=== PATIENT | female | born 1990 | race Caucasian/White ===

== ENCOUNTER 2017-01-06 19:26 | Emergency (ER) | payer SELFPAY ==
[~2017-01-06] VITALS: Ht 170.2 cm; Wt 77.1 kg
[~2017-01-06 19:26] MED LIST: ATIVAN0.5 MG ORAL; ATIVAN1 MG ORAL; IBUPROFEN600 MG ORAL; NKM; ONDANSETRON ODT4 MG ORAL; ZOFRAN ODT4 MG ORAL; ZOFRAN4 MG ORAL; ZOFRAN8 MG ORAL; ZOLPIDEM TARTRAT5 MG ORAL
[2017-01-06] MEDS ORDERED: AMOXICILLIN500 MG ORAL (20:04)
[2017-01-06] MEDS ORDERED: BENADRYL25 MG ORAL (20:04)
[2017-01-06] MEDS ORDERED: HYDROCORTISON28.4 G5 TP (20:04)
[2017-01-06 20:12] VITALS: BP 111/60
[2017-01-06 20:13] VITALS: BP 111/60
--- NOTE | 2017-01-09 18:14 | Emergency Room Report ---
History of Present Illness General Chief Complaint: Skin Rash/Abscess Source: Patient, Medical Record Present Illness HPI The patient is a 26 year old female presenting with a total body rash which began 3 days prior and also sore throat with ear pain. The pt states she recently returned from a tour across [place]. She denies any sick contacts. She does admit to using a new detergent the day before the rash began. It is described as itchy and denies pain. She denies any known allergies. Sore throat is described as a 6/10 dull ache and does not radiate. Pain worse with swallowing. She denies other symptoms such as N, V, F, chills, neck pain/ stiffness, blurred vision, dizziness, fatigue, abd pain, CP, SOB Allergies: Coded Allergies: No Known Allergies (Unverified , 04/03/13) Patient History Past Medical History: see triage record Pertinent Family History: none Last Menstrual Period: 12/20/16 Now: No Reviewed Nursing Documentation: PMH: Agreed, PSxH: Agreed Nursing Documentation-PMH Hx Cardiac Problems: No Hx Asthma: Yes Hx Cancer: No Hx Gastrointestinal Problems: Yes - Cyclic vomiting syndrome Hx Dizziness: Yes Hx Weakness: Yes Review of Systems All Other Systems: negative except mentioned in HPI Physical Exam Vital Signs Date Time Temp Pulse Resp B/P Pulse Ox O2 Delivery O2 Flow Rate FiO2 01/06/17 19:37 97.5 94 14 111/60 98 Room Air Sp02 EP Interpretation: reviewed, normal General Appearance: no apparent distress, alert, GCS 15, non-toxic Head: normocephalic, atraumatic Eyes: bilateral eye PERRL, bilateral eye normal inspection ENT: hearing grossly normal, no angioedema, normal voice, uvula midline, tonsillar swelling, pharyngeal erythema Neck: full range of motion, supple/symm/no masses Respiratory: chest non-tender, lungs clear, normal breath sounds, no wheezing, speaking full sentences Cardiovascular #1: regular rate, rhythm, no edema Musculoskeletal: back normal, gait/station normal, normal range of motion, non- tender Neurologic: alert, oriented x3, responsive, motor strength/tone normal, sensory intact, speech normal Psychiatric: judgement/insight normal, memory normal, mood/affect normal, no suicidal/homicidal ideation Skin: palpation normal, normal turgor, rash, other - erythema to the anterior arms, abdomen, and legs Lymphatic: adenopathy - cervical Medical Decision Making PA Attestation Dr. mcpherson is my supervising physician. Patient management was discussed with my supervising physician Diagnostic Impression: Primary Impression: Contact dermatitis Qualified Codes: L24.0 - Irritant contact dermatitis due to detergents Additional Impression: Pharyngitis, acute Qualified Codes: J02.9 - Acute pharyngitis, unspecified ER Course The patient is a 26 year old female presenting with a total body rash Differential diagnosis include but not limited to pharyngitis, sinusitis, AOM, bronchitis, PNA, meningitis Ddx considered include but not limited to insect bite, contact dermatitis, eczema, cellulitis Physical exam: Vitals within normal limits. Afebrile. No apparent distress HEENT exam: There is bilateral tonsillar edema, erythema, Uvula midline. Moist mucous membranes. There is bilateral cervical lymphadenopathy. Lungs are clear to auscultation bilaterally Skin is warm and dry. There is erythema to the anterior arms, abdomen, and legs The patient will be discharged home with a prescription for amoxicillin, benadryl, hydrocortisone, and and is given ER precautions. Patient will followup with primary care. Pt will stop using the new detergent. Last Vital Signs Date Time Temp Pulse Resp B/P Pulse Ox O2 Delivery O2 Flow Rate FiO2 01/06/17 20:13 97.5 14 111/60 98 Room Air 01/06/17 20:12 88 Status: improved Disposition: HOME, SELF-CARE Condition: Stable Scripts Amoxicillin* (AMOXIL*) 500 Mg Capsule 500 MG ORAL Q12HR, #20 CAP Prov: TERZIAN,ROHAN P.A. 01/06/17 Diphenhydramine Hcl* (BENADRYL*) 25 Mg Capsule 25 MG ORAL Q6H Y for Itching, #20 CAP Prov: TERZIAN,ROHAN P.A. 01/06/17 Hydrocortisone 1% cream (Hydrocortisone 1% cream) Y Cr 28.4 GM TP TID, #28 GM Prov: TERZIAN,ROHAN P.A. 01/06/17 Referrals: NOT CHOSEN [facility]/MD,REFERRING (PCP) Patient Instructions: Rash, Pharyngitis Additional Instructions: I discussed my findings with the patient. All questions and concerns have been answered. Treatment and medication compliance have been addressed. I advised the patient that they need to follow up with PMD in 3-5 days. Return to ED if symptoms worsen, new symptoms arise, or if needed for any reason. Patient verbalized understanding of discharge instructions. ROHAN HYMAN Jan 09, 2017 18:14
== END 2017-01-06 20:11 | disposition home or self-care (01) ==
LOC: EMR 19:52
DX: L25.9 Unspecified contact dermatitis, unspecified cause (principal); J02.9 Acute pharyngitis, unspecified; J45.909 Unspecified asthma, uncomplicated
CPT/HCPCS: 99284

== ENCOUNTER 2018-05-08 23:54 | Emergency (ER) | payer SELFPAY ==
[~2018-05-08] VITALS: Ht 165.1 cm; Wt 81.6 kg
[~2018-05-08 23:54] MED LIST changes: +AMOXICILLIN500 MG ORAL; +BENADRYL25 MG ORAL; +HYDROCORTISON28.4 G5 TP
[2018-05-09 00:15] VITALS: BP 130/80
[2018-05-09] MEDS ORDERED: MUPIROCIN22 GM TOPIC (00:35)
[2018-05-09] MEDS ORDERED: BACTRIM DS TAB1 EAC1 ORAL (00:35)
--- NOTE | 2018-05-09 00:36 | Emergency Room Report ---
History of Present Illness General Chief Complaint: Female Urogenital Problems Source: Patient Present Illness HPI Is a 28-year-old female with no past medical history. She presents with chief complaint of vaginal irritation. She is concerned that she may have an STD. She only had one sexual partner and that was over a year ago. She noticed some rash and bumps to the vaginal area. She was concerned that this may be herpes or other STD. No discharge. No urinary complaint. Denies any other complaint. Allergies: Coded Allergies: No Known Allergies (Unverified , 04/03/13) Patient History Past Medical History: see triage record, old chart reviewed Past Surgical History: none Pertinent Family History: none Social History: Denies: smoking Now: No Immunizations: other Reviewed Nursing Documentation: PMH: Agreed; PSxH: Agreed Nursing Documentation-PMH Past Medical History: No Stated History Hx Cardiac Problems: No Hx Asthma: Yes Hx Cancer: No Hx Gastrointestinal Problems: Yes - Cyclic vomiting syndrome Hx Dizziness: Yes Hx Weakness: Yes Review of Systems Eye: Denies: eye pain, blurred vision ENT: Denies: ear pain, nose congestion, throat swelling Respiratory: Denies: cough, shortness of breath Cardiovascular: Denies: chest pain, palpitations Gastrointestinal: Denies: abdominal pain, diarrhea, nausea, vomiting Musculoskeletal: Denies: back pain, joint pain Skin: Denies: rash Neurological: Denies: headache, numbness Endocrine: Denies: increased thirst, increased urine Hematologic/Lymphatic: Denies: easy bruising All Other Systems: negative except mentioned in HPI Physical Exam Vital Signs Date Time Temp Pulse Resp B/P (MAP) Pulse Ox O2 Delivery O2 Flow Rate FiO2 05/09/18 00:05 98.4 78 16 130/80 98 Room Air 98.4 vitals normal Sp02 EP Interpretation: reviewed, normal General Appearance: well appearing, no apparent distress, alert Head: normocephalic, atraumatic Eyes: bilateral eye PERRL, bilateral eye EOMI ENT: hearing grossly normal, normal pharynx Neck: full range of motion, supple, no meningismus Respiratory: chest non-tender, lungs clear, normal breath sounds Cardiovascular #1: regular rate, rhythm, no murmur Gastrointestinal: normal bowel sounds, non tender, no mass, no organomegaly, no bruit, non-distended Genitourinary: other - Pelvic exam done with female nurse as bracelet maker novelty. External exam show skin irritation of the hair follicle mostly on the left side. She had previously shaved her pubic hair. No abscess. No vesicular lesion. Musculoskeletal: back normal, gait/station normal, normal range of motion Neurologic: alert, oriented x3 Psychiatric: anxious Skin: warm/dry Medical Decision Making Diagnostic Impression: Primary Impression: Folliculitis ER Course Patient with irritation of the skin from shaving. She may have an early folliculitis. We'll go ahead and put on antibiotic ointment and antibiotics. No evidence of STD. Explained to patient that she can get outpatient testing for this. This can be done anonymously. Last Vital Signs Date Time Temp Pulse Resp B/P (MAP) Pulse Ox O2 Delivery O2 Flow Rate FiO2 05/09/18 00:05 98.4 78 16 130/80 98 Room Air 98.4 Status: improved Disposition: HOME, SELF-CARE Condition: Stable Scripts Trimethoprim/Sulfamethoxazole 160/800* (BACTRIM DS TABLET*) 1 Each Tablet 1 TAB ORAL Q12H, #14 TAB 0 Refills Prov: KATALINA LIMA M.D. 05/09/18 Mupirocin* (MUPIROCIN*) 22 Gm Oint...g. 1 APPLIC TOPIC THREE TIMES A DAY, #22 GM Prov: KATALINA LIMA M.D. 05/09/18 Referrals: NOT CHOSEN [facility]/,REFERRING (PCP) Additional Instructions: Clean area with hydrogen peroxide first. Then apply antibiotic ointment. Follow-up with your doctor within a week as needed. You may get outpatient testing for STDs. This can be done anonymously. Return if worse. KATALINA LIMA M.D. May 09, 2018 00:36
[2018-05-09 00:56] LABS: APPEARANCE,URINE CLEAR; BILIRUBIN, URINE NEGATIVE (NEGATIVE); GLUCOSE, URINE (UA) NEGATIVE (NEGATIVE); KETONES,URINE 1+ (NEGATIVE); LEUKOCYTE ESTERASE ,URINE 1+ (NEGATIVE); NITRITE,URINE NEGATIVE (NEGATIVE); PH,URINE 5 (4.5-8.0); PROTEIN,URINE 2+ (NEGATIVE); UROBILINOGEN,URINE 1 MG/DL (0.0-1.0)
[2018-05-09 00:59] LABS: COLOR,URINE YELLOW
[2018-05-09 01:23] VITALS: BP 130/80
== END 2018-05-09 01:25 | disposition home or self-care (01) ==
LOC: EMR 05-09 00:22
DX: L73.9 Follicular disorder, unspecified (principal)
CPT/HCPCS: 81003; 81025; 99283

== ENCOUNTER 2020-05-30 19:17 | Emergency (ER) | payer SELFPAY ==
[~2020-05-30] VITALS: Ht 170.2 cm; Wt 77.6 kg
[~2020-05-30 19:17] MED LIST changes: +BACTRIM DS TAB1 EAC1 ORAL; +DICYCLOMINE HCL10 MG ORAL; +MUPIROCIN22 GM TOPIC; +ZOFRAN4 M3 ORAL
[2020-05-30 19:37] VITALS: BP 122/89
--- NOTE | 2020-05-30 19:37 | NUR ---
ED Nurse Note: Patient walked in from home d/t n/v as well as anxiety, patient reports she was seen at [facility] two days ago, labs were normal per pt and was discharged home. Patient reports she has not been able to keep anything PO fluids or food down. Patient aao x 4 and ambulatory with steady gait. Patient stable during assessment.
--- NOTE | 2020-05-30 19:37 | NUR ---
ED Nurse Note: Patient reports she uses marijuana to help with her appetite.
[2020-05-30] MEDS ORDERED: LORazepam Inj 2mg/ml 1ml IV ONE (19:45)
--- NOTE | 2020-05-30 19:57 | Emergency Room Report ---
History of Present Illness General Chief Complaint: Vomiting Source: Patient Present Illness HPI Patient is a 30-year-old female past medical history of cyclical vomiting who presents to the ER complaining of generalized weakness, nausea and vomiting for the past several days. Patient states that she was seen here 2 days ago and had normal lab work and was discharged home. Patient states that she has a history of anxiety and that the nausea and vomiting has exacerbated her anxiety. She denies any fever or chills. She denies any chest pain or shortness of breath. She denies any dysuria or hematuria. She denies any blood or bilious vomitus. Allergies: Coded Allergies: No Known Allergies (Unverified , 04/03/13) COVID-19 Screening Contact w/high risk pt: No Experienced COVID-19 symptoms?: No COVID-19 Testing performed CLOTH DESIZING RANGE TENDER: No Patient History Last Menstrual Period: 05/29/20 Now: No : 0 Para: 0 Reviewed Nursing Documentation: PMH: Agreed; PSxH: Agreed Nursing Documentation-PMH Past Medical History: No Stated History Hx Cardiac Problems: No Hx Asthma: Yes Hx Cancer: No Hx Gastrointestinal Problems: Yes - Cyclic vomiting syndrome Hx Dizziness: Yes Hx Weakness: Yes Review of Systems All Other Systems: negative except mentioned in HPI Physical Exam Vital Signs Date Time Temp Pulse Resp B/P (MAP) Pulse Ox O2 Delivery O2 Flow Rate FiO2 05/30/20 19:26 98.6 85 16 136/95 (109) 92 Room Air Sp02 EP Interpretation: reviewed, normal General Appearance: no apparent distress, alert, GCS 15, non-toxic Head: normocephalic, atraumatic Eyes: bilateral eye normal inspection, bilateral eye PERRL ENT: hearing grossly normal, normal pharynx, no angioedema, normal voice Neck: full range of motion, supple/symm/no masses Respiratory: chest non-tender, lungs clear, normal breath sounds, speaking full sentences Cardiovascular #1: regular rate, rhythm, no edema Gastrointestinal: other Rectal: deferred Genitourinary: no CVA tenderness Musculoskeletal: normal range of motion Neurologic: glass calibrator III-XII nml as tested, oriented x3 Psychiatric: no suicidal/homicidal ideation Skin: no rash Lymphatic: no adenopathy Medical Decision Making Diagnostic Impression: Primary Impression: Gastroenteritis Additional Impression: cyclic vomiting syndrome ER Course Patient's labs demonstrate no significant acute abnormalities. Patient's UA does demonstrate RBCs but patient is currently menstruating. Patient CT consistent with gastroenteritis. Patient given IV fluids, Zofran and Pepcid. On reevaluation she feels improved. I have given her a copy of her CAT scan results. After discussing risks and benefits of further diagnostics, treatment plans, as well as indications for and risks of admission, the patient is agreeable to being discharged home. I have explained that their evaluation and treatment in the emergency department today is an important step towards them achieving better health but that their evaluation today is not intended to replace further evaluation and treatment by a physician in their local clinic. I have explained that while the current findings suggest no immediate life threatening emergency they will require further evaluation and treatment by a physician of their choice in their area. They understand that it will be necessary for them to review the final reports of their ED visit with their clinic physician. We have reviewed indications for return to the Emergency Department. I have explained that additional time may need to pass and/or additional testing as an outpatient may be necessary before a definitive diagnosis can be made. They tell me they are willing to follow up as instructed within the timeframe I recommend. They appear to understand what we discussed. Additionally they understand that if they are unable to be seen by an outpatient physician they are welcome, and in fact should, return to the Emergency Department for a repeat evaluation. The patient is stable at time of discharge. Laboratory Tests Test 05/30/20 19:44 White Blood Count 7.7 K/UL (4.8-10.8) Red Blood Count 4.61 M/UL (4.20-5.40) Hemoglobin 13.9 G/DL (12.0-16.0) Hematocrit 42.5 % (37.0-47.0) Mean Corpuscular Volume 92 FL (80-99) Mean Corpuscular Hemoglobin 30.2 PG (27.0-31.0) Mean Corpuscular Hemoglobin Concent 32.8 G/DL (32.0-36.0) Red Cell Distribution Width 13.0 % (11.6-14.8) Platelet Count 309 K/UL (150-450) Mean Platelet Volume 7.4 FL (6.5-10.1) Neutrophils (%) (Auto) 55.9 % (45.0-75.0) Lymphocytes (%) (Auto) 32.6 % (20.0-45.0) Monocytes (%) (Auto) 8.7 % (1.0-10.0) Eosinophils (%) (Auto) 1.3 % (0.0-3.0) Basophils (%) (Auto) 1.6 % (0.0-2.0) Urine Color Yellow Urine Appearance Cloudy Urine pH 7 (4.5-8.0) Urine Specific [place] 1.015 (1.005-1.035) Urine Protein 1+ (NEGATIVE) H Urine Glucose (UA) Negative (NEGATIVE) Urine Ketones 4+ (NEGATIVE) H Urine Blood 5+ (NEGATIVE) H Urine Nitrite Negative (NEGATIVE) Urine Bilirubin Negative (NEGATIVE) Urine Urobilinogen Normal MG/DL (0.0-1.0) Urine Leukocyte Esterase 1+ (NEGATIVE) H Urine RBC Tntc /HPF (0 - 2) H Urine WBC 2-4 /HPF (0 - 2) Urine Squamous Epithelial Cells Few /LPF (NONE/OCC) Urine Bacteria Few /HPF (NONE) Urine HCG, Qualitative Negative (NEGATIVE) Sodium Level 140 MMOL/L (136-145) Potassium Level 3.7 MMOL/L (3.5-5.1) Chloride Level 103 MMOL/L (98-107) Carbon Dioxide Level 27 MMOL/L (21-32) Anion Gap 10 mmol/L (5-15) Blood Urea Nitrogen 8 mg/dL (7-18) Creatinine 0.8 MG/DL (0.55-1.30) Estimated Glomerular Filtration Rate > 60 mL/min (>60) Glucose Level 100 MG/DL (74-106) Calcium Level 8.7 MG/DL (8.5-10.1) Magnesium Level 2.4 MG/DL (1.8-2.4) Total Bilirubin 0.5 MG/DL (0.2-1.0) Aspartate Amino Transferase (AST) 19 U/L (15-37) Alanine Aminotransferase (ALT) 20 U/L (12-78) Alkaline Phosphatase 56 U/L (46-116) Total Protein 8.0 G/DL (6.4-8.2) Albumin 4.5 G/DL (3.4-5.0) Globulin 3.5 g/dL Albumin/Globulin Ratio 1.3 (1.0-2.7) Lipase 146 U/L (73-393) Urine Opiates Screen Negative (NEGATIVE) Urine Barbiturates Screen Negative (NEGATIVE) Phencyclidine (PCP) Screen Negative (NEGATIVE) Urine Amphetamines Screen Negative (NEGATIVE) Urine Benzodiazepines Screen Negative (NEGATIVE) Urine Cocaine Screen Negative (NEGATIVE) Urine Marijuana (THC) Screen Positive (NEGATIVE) H Last Vital Signs Date Time Temp Pulse Resp B/P (MAP) Pulse Ox O2 Delivery O2 Flow Rate FiO2 05/30/20 19:50 85 16 136/95 92 05/30/20 19:26 98.6 Room Air Disposition: HOME, SELF-CARE Condition: Stable Scripts Famotidine* (Pepcid 20mg tablet*) 20 Mg Tablet 20 MG ORAL DAILY, #30 TAB 0 Refills Prov: Yahaira Rothman M.D. 05/30/20 Ondansetron* (ZOFRAN*) 4 Mg Tablet 4 MG ORAL Q6H PRN for Nausea & Vomiting, #20 TAB Prov: Yahaira Rothman M.D. 05/30/20 Additional Instructions: The patient was provided with discharge instructions, notified to follow-up with a primary care doctor and or specialist in the next 24-48 hours, and to return to the ED if they have worsening of their symptoms. Please note that this report is being documented using [employer] technology. This can lead to erroneous entry secondary to incorrect interpretation by the dictating instrument. Yahaira Rothman M.D. May 30, 2020 19:57
[2020-05-30 20:13] LABS: BASOPHILS % (AUTO) 1.6 % (0.0-2.0); EOSINOPHILS % (AUTO) 1.3 % (0.0-3.0); HEMATOCRIT 42.5 % (37.0-47.0); HEMOGLOBIN 13.9 G/DL (12.0-16.0); LYMPHOCYTES % (AUTO) 32.6 % (20.0-45.0); MEAN CORPUSCULAR VOLUME 92 FL (80-99); MONOCYTES % (AUTO) 8.7 % (1.0-10.0); NEUTROPHILS % (AUTO) 55.9 % (45.0-75.0); PLATELET COUNT 309 K/UL (150-450); RED BLOOD COUNT 4.61 M/UL (4.20-5.40); WHITE BLOOD COUNT 7.7 K/UL (4.8-10.8)
[2020-05-30 20:36] LABS: ANION GAP 10 mmol/L (5-15); BLOOD UREA NITROGEN 8 mg/dL (7-18); CALCIUM 8.7 MG/DL (8.5-10.1); CARBON DIOXIDE 27 MMOL/L (21-32); CHLORIDE 103 MMOL/L (98-107); CREATININE 0.8 MG/DL (0.55-1.30); POTASSIUM 3.7 MMOL/L (3.5-5.1); SODIUM 140 MMOL/L (136-145)
[2020-05-30 20:39] LABS: APPEARANCE,URINE CLOUDY; BILIRUBIN, URINE NEGATIVE (NEGATIVE); GLUCOSE, URINE (UA) NEGATIVE (NEGATIVE); KETONES,URINE 4+ (NEGATIVE); LEUKOCYTE ESTERASE ,URINE 1+ (NEGATIVE); NITRITE,URINE NEGATIVE (NEGATIVE); PH,URINE 7 (4.5-8.0); PROTEIN,URINE 1+ (NEGATIVE); UROBILINOGEN,URINE NORMAL MG/DL (0.0-1.0)
[2020-05-30 20:40] LABS: ALANINE AMINOTRANSFERASE 20 U/L (12-78); ALBUMIN 4.5 G/DL (3.4-5.0); ALBUMIN/GLOBULIN RATIO 1.3 (1.0-2.7); ALKALINE PHOSPHATASE 56 U/L (46-116); ASPARTATE AMINO TRANSFERASE 19 U/L (15-37); BILIRUBIN,TOTAL 0.5 MG/DL (0.2-1.0)
[2020-05-30 20:48] LABS: COLOR,URINE YELLOW
--- NOTE | 2020-05-30 20:59 | Diagnostic Imaging Report ---
EXAM: CT Abdomen and Pelvis Without Intravenous Contrast CLINICAL HISTORY: PAIN TECHNIQUE: Axial computed tomography images of the abdomen and pelvis without intravenous contrast. CTDI is 6.2 mGy and DLP is 337 mGy-cm. One or more of the following dose reduction techniques were used: automated exposure control, adjustment of the mA and/or kV according to patient size, use of iterative reconstruction technique. COMPARISON: No relevant prior studies available. FINDINGS: Lung bases: Unremarkable. No mass. No consolidation. ABDOMEN: Liver: See below. Gallbladder and bile ducts: See below. Pancreas: See below. Spleen: See below. Adrenals: Unremarkable. No mass. Kidneys and ureters: See below. Stomach and bowel: Fluid within nondistended loops of small bowel and within stomach without bowel wall thickening or surrounding inflammation can be normal or can be seen with gastroenteritis in the right clinical setting. PELVIS: Appendix: No appendicitis, inflammatory changes of bowel or bowel obstruction. Bladder: Unremarkable. No stones. Reproductive: Unremarkable as visualized. ABDOMEN and PELVIS: Intraperitoneal space: No free fluid. No free air. Bones/joints: No acute fracture. No dislocation. Soft tissues: Unremarkable. Vasculature: Aorta, liver, spleen, pancreas, gallbladder, and kidneys are unremarkable. No abdominal aortic aneurysm. Lymph nodes: Unremarkable. No enlarged lymph nodes. IMPRESSION: 1. Fluid within nondistended loops of small bowel and within stomach without bowel wall thickening or surrounding inflammation can be normal or can be seen with gastroenteritis in the right clinical setting. 2. No other acute disease or bowel obstruction.
[2020-05-30] MEDS ORDERED: FAMOTIDINE20 MG ORAL (21:40)
[2020-05-30] MEDS ORDERED: ZOFRAN4 M3 ORAL (21:40)
[2020-05-30 22:08] VITALS: BP 120/87
--- NOTE | 2020-05-30 22:08 | NUR ---
ER DISCHARGE NOTE: Patient is cleared to be discharged per ERMD, pt is aox4, on room air, with stable vital signs. pt was given dc and prescription instructions, pt was able to verbalize understanding, pt id band and iv site removed intact without complications. pt is able to ambulate with steady gait. pt took all belongings. pt stable upon discharge.
== END 2020-05-30 22:08 | disposition home or self-care (01) ==
LOC: EMR 20:01
DX: K52.9 Noninfective gastroenteritis and colitis, unspecified (principal); R11.15 Cyclical vomiting syndrome unrelated to migraine; F41.9 Anxiety disorder, unspecified
CPT/HCPCS: 36415; 74176; 80053; 80307; 81003; 81025; 83690; 83735; 85025; 96361; 96374; 96375; 96376; 99284; J2405; J7030; S0028